=== PATIENT | female | born 1975 ===

== ENCOUNTER 2020-03-14 18:56 | Inpatient (IN) ==
[2020-03-14 19:38] LABS: Basophils % 0.1 % (0.0-0.8); Hemoglobin 10.1 GM/DL (12.0-16.0); Immature Granulocytes % 0.6 %; Immature Granulocytes Absolute 0.13 #; Lymphocytes # 1.1 10*3/uL (1.4-4.0); Lymphocytes % 5.1 % (21.3-54.2); Mean Corpuscular HGB Conc 30.6 GM/DL (32-36); Mean Corpuscular Volume 62.7 FL (87-102); Mean Platelet Volume 9.1 FL (9.6-12.0); Monocytes % 3.8 % (1.7-12.7); Neutrophils % 90.4 % (38.7-73.9); Platelet Count 454 T/CUMM (130-400); Red Blood Count 5.26 MC/CUMM (3.8-5.5); White Blood Count 21.2 T/CUMM (4-12)
[2020-03-14] MEDS ORDERED: DEXAMETHASONE 4 MG/1 ML VIAL IV STA (19:42)
[2020-03-14] MEDS ORDERED: ONDANSETRON 4 MG/2 ML VIAL IV STA (19:42)
[2020-03-14] MEDS ORDERED: PIPERACILLIN/TAZOBACTAM 3,375 MG in SODIUM CHLORIDE 0.9% 100 ML IV STA (19:42)
[2020-03-14 19:43] LABS: Albumin 2.9 G/DL (3.4-5.0); Bilirubin,Total 0.5 MG/DL (0.2-1.0); Calcium 8.5 MG/DL (8.5-10.1); Osmolality,Calculated 267.4 MOS/KG (273-304); Total Protein 7.5 G/DL (6.4-8.3)
[2020-03-14 19:47] LABS: Partial Thromboplastin Time 33.6 SECS (23.9-33.8)
[2020-03-14] MEDS ORDERED: ACETAMINOPHEN 500 MG TABLET PO STA (20:09)
[2020-03-14 20:11] LABS: Ferritin 55.9 ng/ml (8-252)
[2020-03-14 20:21] LABS: PT Patient Result 10.9 SECS (9.8-11.9)
[2020-03-14 20:35] LABS: Lymphocytes 7 % (20-55); Microcytosis 3+; Segmented Neutrophils 91 % (50-85); Total Cells Counted 100
[2020-03-14 20:36] LABS: Hypochromasia 2+; Platelet Estimate Increased
[2020-03-14] MEDS ORDERED: GLUCAGON 1 MG VIAL IM PRN (21:01)
[2020-03-14] MEDS ORDERED: ONDANSETRON 4 MG/2 ML VIAL IV PRN (21:01)
[2020-03-14] MEDS ORDERED: diphenhydrAMINE CAP 25 MG CAPSULE PO PRN (21:01)
[2020-03-14] MEDS ORDERED: MORPHINE 4 MG/1 ML VIAL IV PRN (21:01)
[2020-03-14] MEDS ORDERED: DEXTROSE 50% 25 GM/50 ML VIAL IV PRN (21:01)
[2020-03-14] MEDS ORDERED: hydrALAZINE 20 MG/1 ML VIAL IV PRN (21:01)
[2020-03-14] MEDS ORDERED: ALUMINUM/MAGNES/SIMETH MAX STR 30 ML UDCUP PO PRN (21:01)
[2020-03-14] MEDS ORDERED: ACETAMINOPHEN 325 MG TABLET PO PRN (21:01)
[2020-03-14] MEDS ORDERED: NICOTINE 21 MG/24 HR PATCH TRANSDERM PRN (21:01)
[2020-03-14] MEDS: SODIUM CHLORIDE 0.9% 1,000 ML IV SCH (22:33)
[2020-03-15] MEDS: PIPERACILLIN/TAZOBACTAM 3,375 MG in SODIUM CHLORIDE 0.9% 100 ML IV SCH ×3 (04:21→21:43)
[2020-03-15] MEDS ORDERED: ALBUTEROL INHALER 18 GM INH PRN (06:36)
[2020-03-15] MEDS ORDERED: AZITHROMYCIN INJ 500 MG in SODIUM CHLORIDE 0.9% 250 ML IV SCH (07:00)
[2020-03-15] MEDS ORDERED: DEXAMETHASONE 4 MG/1 ML VIAL IV SCH (08:00)
[2020-03-15] MEDS: ALBUTEROL INHALER 18 GM INH SCH ×4 (08:31→20:20)
[2020-03-15] MEDS: SODIUM CHLORIDE 0.9% 1,000 ML IV SCH ×3 (08:31→18:50)
[2020-03-15] MEDS: AZITHROMYCIN 250 MG TABLET PO SCH (08:32)
[2020-03-15] MEDS ORDERED: SODIUM CHLORIDE 0.9% 1,000 ML IV PRN (11:08)
[2020-03-15 12:22] LABS: ABG Base Excess -4.1 MMOL/L (-2.5-2.5); ABG HCO3 20.9 MMOL/L (20-26); ABG Oxygen Saturation 89.1 % (95-100); ABG PCO2 31.9 MM HG (35-48); ABG PH 7.403 (7.35-7.45); ABG PO2 67.5 MM HG (80-95); ABG TCO2 18.3 MMOL/L (23-27); Allen Test Positive
[2020-03-15] MEDS: INSULIN LISPRO 100 UNIT/ML SUBCUT SCH ×3 (12:29→20:21)
[2020-03-15] MEDS ORDERED: ENOXAPARIN 40 MG/0.4 ML SYRINGE SUBCUT SCH (12:30)
[2020-03-15] MEDS ORDERED: FUROSEMIDE 40 MG/4 ML VIAL IV ONE (12:58)
[2020-03-15 13:04] LABS: Bilirubin,Urine Negative (Negative); Blood, Urine Negative (Negative); Glucose,Urine (UA) >=500 mg/dL (Negative); Ketones,Urine 80 mg/dL (Negative); Mucus,Urine Occasional /LPF (Occasional); Nitrite,Urine Negative (Negative); Protein,Urine 30 MG/DL; RBC,Urine 1 /HPF (0-4); Squamous Epithelial Cell,Urine Occasional /HPF (0-10); Urine Appearance Slightly Hazy (Clear); Urine Color Yellow (Yellow); Urine Specific Gravity 1.023 (1.001-1.035); Urine Urobilinogen < 2.0 EU/DL (0.2-1.0); WBC,Urine 4 /HPF (0-6)
[2020-03-15] MEDS: ASCORBIC ACID 500 MG TABLET PO SCH ×2 (13:38→20:17)
[2020-03-15] MEDS: CETIRIZINE 10 MG TABLET PO SCH (13:38)
[2020-03-15] MEDS: ZINC SULFATE 220 MG CAPSULE PO SCH (13:38)
[2020-03-15] MEDS ORDERED: REMDESIVIR 200 MG in SODIUM CHLORIDE 0.9% 210 ML IV ONE (15:00)
[2020-03-15] MEDS ORDERED: POTASSIUM CHLORIDE 20 MEQ TABLET PO ONE (15:08)
[2020-03-15] MEDS: glipiZIDE 5 MG TABLET PO SCH ×2 (15:58→20:16)
[2020-03-15] MEDS: ALPRAZolam 0.25 MG TABLET PO PRN (16:44)
[2020-03-15] MEDS: ENOXAPARIN 40 MG/0.4 ML SYRINGE SUBCUT SCH (20:22)
[2020-03-16] MEDS: ALBUTEROL INHALER 18 GM INH SCH ×7 (00:04→23:15)
[2020-03-16] MEDS: SODIUM CHLORIDE 0.9% 1,000 ML IV SCH (03:51)
[2020-03-16] MEDS: PIPERACILLIN/TAZOBACTAM 3,375 MG in SODIUM CHLORIDE 0.9% 100 ML IV SCH ×3 (03:58→20:18)
[2020-03-16 04:50] LABS: Basophils % 0.1 % (0.0-0.8); Hematocrit 29.5 VOL% (35.7-47.0); Hemoglobin 8.9 GM/DL (12.0-16.0); Immature Granulocytes % 0.6 %; Immature Granulocytes Absolute 0.14 #; Lymphocytes # 1.9 10*3/uL (1.4-4.0); Lymphocytes % 8.5 % (21.3-54.2); Mean Corpuscular HGB Conc 30.2 GM/DL (32-36); Mean Corpuscular Volume 62.5 FL (87-102); Mean Platelet Volume 8.9 FL (9.6-12.0); Monocytes % 4.9 % (1.7-12.7); NRBC # 0.02 10*3/uL; Neutrophils % 85.9 % (38.7-73.9); Platelet Count 537 T/CUMM (130-400); Red Blood Count 4.72 MC/CUMM (3.8-5.5); Red Cell Distribution Width 19.6 % (9.3-17.3); White Blood Count 22.8 T/CUMM (4-12)
[2020-03-16 05:09] LABS: Lymphocytes 4 % (20-55); Nucleated Red Blood Cells 2 (0-5); Platelet Estimate Increased; Segmented Neutrophils 93 % (50-85); Total Cells Counted 100
[2020-03-16 05:10] LABS: Hypochromasia Slight; Microcytosis 2+
[2020-03-16 05:24] LABS: Alanine Aminotransferase 22 U/L (13-56); Albumin 2.3 G/DL (3.4-5.0); Alkaline Phosphatase 80 U/L (45-117); Aspartate Amino Transferase 22 U/L (0-37); Bilirubin,Total < 0.39 MG/DL (0.2-1.0); Blood Urea Nitrogen 14 MG/DL (7-18); Calcium 8.2 MG/DL (8.5-10.1); Estimated Glom Filtration Rate 125 ML/MIN; Glucose 141 MG/DL (74-106); Osmolality,Calculated 277.7 MOS/KG (273-304); Total Protein 7.3 G/DL (6.4-8.3)
[2020-03-16 05:25] LABS: Risk Ratio 3.48; VLDL CHOLESTEROL 21.4 MG/DL
[2020-03-16 07:42] LABS: ABG Base Excess -1.9 MMOL/L (-2.5-2.5); ABG HCO3 21.4 MMOL/L (20-26); ABG Oxygen Saturation 87.4 % (95-100); ABG PCO2 30.6 MM HG (35-48); ABG PH 7.462 (7.35-7.45); ABG PO2 55.5 MM HG (80-95); ABG TCO2 22.3 MMOL/L (23-27); Allen Test Positive; Pt O2 Delivery Device Other
[2020-03-16] MEDS: INSULIN LISPRO 100 UNIT/ML SUBCUT SCH ×4 (07:44→21:23)
[2020-03-16] MEDS ORDERED: POTASSIUM CHLORIDE 20 MEQ TABLET PO ONE (08:15)
[2020-03-16] MEDS: ENOXAPARIN 40 MG/0.4 ML SYRINGE SUBCUT SCH ×2 (08:23→21:23)
[2020-03-16] MEDS: AZITHROMYCIN 250 MG TABLET PO SCH (08:23)
[2020-03-16] MEDS: glipiZIDE 5 MG TABLET PO SCH ×2 (08:24→21:23)
[2020-03-16] MEDS: ASCORBIC ACID 500 MG TABLET PO SCH ×2 (08:24→21:23)
[2020-03-16] MEDS: lisinopriL 5 MG TABLET PO SCH (08:24)
[2020-03-16] MEDS: CETIRIZINE 10 MG TABLET PO SCH (08:24)
[2020-03-16] MEDS: ZINC SULFATE 220 MG CAPSULE PO SCH (08:24)
[2020-03-16] MEDS: DEXAMETHASONE 10 MG/1 ML VIAL IV SCH (08:25)
[2020-03-16] MEDS: REMDESIVIR 100 MG in SODIUM CHLORIDE 0.9% 230 ML IV SCH (08:25)
[2020-03-16] MEDS: ALPRAZolam 0.25 MG TABLET PO PRN ×2 (15:37→20:45)
[2020-03-17 03:42] LABS: ABG Base Excess -0.6 MMOL/L (-2.5-2.5); ABG HCO3 23.8 MMOL/L (20-26); ABG Oxygen Saturation 91.5 % (95-100); ABG PCO2 32.5 MM HG (35-48); ABG PH 7.455 (7.35-7.45); ABG PO2 64.7 MM HG (80-95); ABG TCO2 21.1 MMOL/L (23-27); Allen Test Positive; Pt O2 Delivery Device Other
[2020-03-17 04:00] LABS: Basophils % 0.1 % (0.0-0.8); Hematocrit 28.8 VOL% (35.7-47.0); Hemoglobin 8.7 GM/DL (12.0-16.0); Immature Granulocytes % 0.7 %; Immature Granulocytes Absolute 0.12 #; Lymphocytes # 1.8 10*3/uL (1.4-4.0); Lymphocytes % 10.6 % (21.3-54.2); Mean Corpuscular HGB Conc 30.2 GM/DL (32-36); Mean Corpuscular Volume 63.6 FL (87-102); Mean Platelet Volume 9.2 FL (9.6-12.0); Monocytes % 5.4 % (1.7-12.7); NRBC # 0.02 10*3/uL; Neutrophils % 83.2 % (38.7-73.9); Platelet Count 543 T/CUMM (130-400); Red Blood Count 4.53 MC/CUMM (3.8-5.5); Red Cell Distribution Width 19.9 % (9.3-17.3); White Blood Count 16.6 T/CUMM (4-12)
[2020-03-17] MEDS: ALBUTEROL INHALER 18 GM INH SCH ×4 (04:00→17:03)
[2020-03-17 04:24] LABS: Calcium 8.4 MG/DL (8.5-10.1); Ferritin 45.3 ng/ml (8-252); Osmolality,Calculated 276.8 MOS/KG (273-304)
[2020-03-17] MEDS: PIPERACILLIN/TAZOBACTAM 3,375 MG in SODIUM CHLORIDE 0.9% 100 ML IV SCH ×3 (05:00→19:46)
[2020-03-17] MEDS: INSULIN LISPRO 100 UNIT/ML SUBCUT SCH ×4 (07:09→21:01)
[2020-03-17] MEDS: glipiZIDE 5 MG TABLET PO SCH ×2 (08:04→21:02)
[2020-03-17] MEDS: DEXAMETHASONE 10 MG/1 ML VIAL IV SCH (08:04)
[2020-03-17] MEDS: ENOXAPARIN 40 MG/0.4 ML SYRINGE SUBCUT SCH ×2 (08:04→21:02)
[2020-03-17] MEDS: FAMOTIDINE 20 MG TABLET PO SCH (08:05)
[2020-03-17] MEDS: ZINC SULFATE 220 MG CAPSULE PO SCH (08:05)
[2020-03-17] MEDS: CETIRIZINE 10 MG TABLET PO SCH (08:05)
[2020-03-17] MEDS: ASCORBIC ACID 500 MG TABLET PO SCH ×2 (08:05→21:02)
[2020-03-17] MEDS: AZITHROMYCIN 250 MG TABLET PO SCH (08:05)
[2020-03-17] MEDS: POTASSIUM CHLORIDE 20 MEQ TABLET PO PRN (08:05)
[2020-03-17] MEDS: lisinopriL 5 MG TABLET PO SCH (08:06)
[2020-03-17] MEDS: ALPRAZolam 0.25 MG TABLET PO PRN ×2 (08:52→21:03)
[2020-03-17] MEDS: REMDESIVIR 100 MG in SODIUM CHLORIDE 0.9% 230 ML IV SCH (09:49)
[2020-03-17] MEDS: guaiFENesin/DM ER 600-30 MG TABLET PO PRN (12:15)
[2020-03-18] MEDS: PIPERACILLIN/TAZOBACTAM 3,375 MG in SODIUM CHLORIDE 0.9% 100 ML IV SCH ×2 (03:03→12:02)
[2020-03-18 04:09] LABS: Pt O2 Delivery Device Other
[2020-03-18 04:10] LABS: ABG Base Excess -2.1 MMOL/L (-2.5-2.5); ABG HCO3 21.1 MMOL/L (20-26); ABG Oxygen Saturation 86.6 % (95-100); ABG PCO2 30.1 MM HG (35-48); ABG PH 7.463 (7.35-7.45); ABG PO2 54.6 MM HG (80-95)
[2020-03-18 06:33] LABS: Basophils % 0.1 % (0.0-0.8); Eosinophils # 0.1 10*3/uL (0.0-0.87); Eosinophils % 0.5 % (0.00-10.9); Hematocrit 30.9 VOL% (35.7-47.0); Hemoglobin 9.3 GM/DL (12.0-16.0); Immature Granulocytes Absolute 0.37 #; Lymphocytes # 3.1 10*3/uL (1.4-4.0); Lymphocytes % 16.3 % (21.3-54.2); Mean Corpuscular HGB Conc 30.1 GM/DL (32-36); Mean Corpuscular Volume 63.4 FL (87-102); Mean Platelet Volume 9.5 FL (9.6-12.0); Monocytes % 5.4 % (1.7-12.7); NRBC # 0.02 10*3/uL; Neutrophils % 75.7 % (38.7-73.9); Platelet Count 555 T/CUMM (130-400); Red Blood Count 4.87 MC/CUMM (3.8-5.5); Red Cell Distribution Width 20.2 % (9.3-17.3); White Blood Count 18.9 T/CUMM (4-12)
[2020-03-18 06:56] LABS: Calcium 8.2 MG/DL (8.5-10.1); Ferritin 32.4 ng/ml (8-252); Osmolality,Calculated 277.4 MOS/KG (273-304)
[2020-03-18] MEDS: ALBUTEROL INHALER 18 GM INH SCH ×6 (07:09→23:15)
[2020-03-18] MEDS: ENOXAPARIN 40 MG/0.4 ML SYRINGE SUBCUT SCH ×2 (08:03→20:32)
[2020-03-18] MEDS: POTASSIUM CHLORIDE 20 MEQ TABLET PO PRN ×3 (08:03→14:41)
[2020-03-18] MEDS: DEXAMETHASONE 10 MG/1 ML VIAL IV SCH (08:03)
[2020-03-18] MEDS: glipiZIDE 5 MG TABLET PO SCH (08:03)
[2020-03-18] MEDS: FAMOTIDINE 20 MG TABLET PO SCH (08:03)
[2020-03-18] MEDS: lisinopriL 5 MG TABLET PO SCH (08:04)
[2020-03-18] MEDS: ZINC SULFATE 220 MG CAPSULE PO SCH (08:04)
[2020-03-18] MEDS: CETIRIZINE 10 MG TABLET PO SCH (08:04)
[2020-03-18] MEDS: AZITHROMYCIN 250 MG TABLET PO SCH (08:04)
[2020-03-18] MEDS: ASCORBIC ACID 500 MG TABLET PO SCH ×2 (08:04→20:33)
[2020-03-18] MEDS: guaiFENesin/DM ER 600-30 MG TABLET PO PRN ×2 (09:00→22:00)
[2020-03-18] MEDS: ALPRAZolam 0.25 MG TABLET PO PRN ×2 (09:00→20:33)
[2020-03-18] MEDS: INSULIN LISPRO 100 UNIT/ML SUBCUT SCH ×4 (10:16→20:33)
[2020-03-18] MEDS: REMDESIVIR 100 MG in SODIUM CHLORIDE 0.9% 230 ML IV SCH (10:16)
[2020-03-18] MEDS: LEVOFLOXACIN INJ 750 MG in PREMIX 1 EACH IV SCH (15:07)
[2020-03-18] MEDS: VANCOMYCIN INJ 1,500 MG in SODIUM CHLORIDE 0.9% 500 ML IV SCH (17:17)
[2020-03-18] MEDS ORDERED: guaiFENesin 200 MG/10 ML UDCUP PO PRN (21:36)
[2020-03-19] MEDS: VANCOMYCIN INJ 1,500 MG in SODIUM CHLORIDE 0.9% 500 ML IV SCH (03:45)
[2020-03-19] MEDS: ALBUTEROL INHALER 18 GM INH SCH ×5 (04:00→18:14)
[2020-03-19 04:08] LABS: Basophils % 0.1 % (0.0-0.8); Eosinophils # 0.1 10*3/uL (0.0-0.87); Eosinophils % 0.5 % (0.00-10.9); Hematocrit 30.5 VOL% (35.7-47.0); Hemoglobin 9.1 GM/DL (12.0-16.0); Immature Granulocytes % 1.8 %; Immature Granulocytes Absolute 0.32 #; Lymphocytes # 2.5 10*3/uL (1.4-4.0); Lymphocytes % 14.5 % (21.3-54.2); Mean Corpuscular HGB Conc 29.8 GM/DL (32-36); Mean Corpuscular Volume 63.5 FL (87-102); Mean Platelet Volume 9.1 FL (9.6-12.0); Monocytes % 5.4 % (1.7-12.7); NRBC # 0.06 10*3/uL; Neutrophils % 77.7 % (38.7-73.9); Platelet Count 592 T/CUMM (130-400); Red Cell Distribution Width 19.9 % (9.3-17.3); White Blood Count 17.5 T/CUMM (4-12)
[2020-03-19 04:29] LABS: Calcium 8.1 MG/DL (8.5-10.1); Osmolality,Calculated 277.5 MOS/KG (273-304)
[2020-03-19 04:54] LABS: ABG Base Excess -1.3 MMOL/L (-2.5-2.5); ABG HCO3 21.5 MMOL/L (20-26); ABG Oxygen Saturation 93.2 % (95-100); ABG PCO2 29.1 MM HG (35-48); ABG PH 7.487 (7.35-7.45); ABG PO2 70.2 MM HG (80-95); ABG TCO2 22.4 MMOL/L (23-27); Pt O2 Delivery Device Other
[2020-03-19 05:01] LABS: Ferritin 24.7 ng/ml (8-252)
[2020-03-19] MEDS: INSULIN LISPRO 100 UNIT/ML SUBCUT SCH ×4 (07:58→20:36)
[2020-03-19] MEDS: lisinopriL 5 MG TABLET PO SCH (08:27)
[2020-03-19] MEDS: DEXAMETHASONE 10 MG/1 ML VIAL IV SCH (08:27)
[2020-03-19] MEDS: FAMOTIDINE 20 MG TABLET PO SCH (08:27)
[2020-03-19] MEDS: ENOXAPARIN 40 MG/0.4 ML SYRINGE SUBCUT SCH ×2 (08:27→20:37)
[2020-03-19] MEDS: ZINC SULFATE 220 MG CAPSULE PO SCH (08:27)
[2020-03-19] MEDS: CETIRIZINE 10 MG TABLET PO SCH (08:27)
[2020-03-19] MEDS: ASCORBIC ACID 500 MG TABLET PO SCH ×2 (08:27→20:37)
[2020-03-19] MEDS: REMDESIVIR 100 MG in SODIUM CHLORIDE 0.9% 230 ML IV SCH (08:28)
[2020-03-19] MEDS: LEVOFLOXACIN INJ 750 MG in PREMIX 1 EACH IV SCH (15:37)
[2020-03-20] MEDS: ALBUTEROL INHALER 18 GM INH SCH ×7 (00:03→23:49)
[2020-03-20 04:28] LABS: ABG Base Excess 0.5 MMOL/L (-2.5-2.5); ABG HCO3 23.5 MMOL/L (20-26); ABG Oxygen Saturation 93.4 % (95-100); ABG PCO2 31.6 MM HG (35-48); ABG PH 7.489 (7.35-7.45); ABG PO2 71.8 MM HG (80-95); ABG TCO2 24.5 MMOL/L (23-27); Allen Test Positive; Pt O2 Delivery Device Other
[2020-03-20 04:45] LABS: Basophils % 0.1 % (0.0-0.8); Eosinophils # 0.1 10*3/uL (0.0-0.87); Eosinophils % 0.5 % (0.00-10.9); Hematocrit 31.3 VOL% (35.7-47.0); Hemoglobin 9.4 GM/DL (12.0-16.0); Immature Granulocytes % 2.5 %; Immature Granulocytes Absolute 0.48 #; Lymphocytes % 10.8 % (21.3-54.2); Mean Corpuscular Volume 62.5 FL (87-102); Mean Platelet Volume 9.1 FL (9.6-12.0); Monocytes % 5.5 % (1.7-12.7); NRBC # 0.03 10*3/uL; Neutrophils % 80.6 % (38.7-73.9); Platelet Count 485 T/CUMM (130-400); Red Blood Count 5.01 MC/CUMM (3.8-5.5); Red Cell Distribution Width 20.4 % (9.3-17.3); White Blood Count 18.9 T/CUMM (4-12)
[2020-03-20 05:05] LABS: Ferritin 20.5 ng/ml (8-252)
[2020-03-20 05:19] LABS: Calcium 8.2 MG/DL (8.5-10.1); Osmolality,Calculated 281.5 MOS/KG (273-304)
[2020-03-20] MEDS: INSULIN LISPRO 100 UNIT/ML SUBCUT SCH ×4 (07:58→21:32)
[2020-03-20] MEDS: DEXAMETHASONE 10 MG/1 ML VIAL IV SCH (09:19)
[2020-03-20] MEDS: ENOXAPARIN 40 MG/0.4 ML SYRINGE SUBCUT SCH ×2 (09:20→21:32)
[2020-03-20] MEDS: POTASSIUM CHLORIDE 20 MEQ TABLET PO PRN ×2 (09:21→12:24)
[2020-03-20] MEDS: FAMOTIDINE 20 MG TABLET PO SCH (09:21)
[2020-03-20] MEDS: ZINC SULFATE 220 MG CAPSULE PO SCH (09:21)
[2020-03-20] MEDS: lisinopriL 5 MG TABLET PO SCH (09:21)
[2020-03-20] MEDS: CETIRIZINE 10 MG TABLET PO SCH (09:21)
[2020-03-20] MEDS: ASCORBIC ACID 500 MG TABLET PO SCH ×2 (09:21→21:32)
[2020-03-20] MEDS: LEVOFLOXACIN INJ 750 MG in PREMIX 1 EACH IV SCH (16:36)
[2020-03-20] MEDS: ALPRAZolam 0.25 MG TABLET PO PRN (21:33)
[2020-03-21] MEDS: ALBUTEROL INHALER 18 GM INH SCH ×6 (03:23→23:20)
[2020-03-21 04:08] LABS: Basophils % 0.1 % (0.0-0.8); Eosinophils # 0.1 10*3/uL (0.0-0.87); Eosinophils % 0.3 % (0.00-10.9); Hematocrit 31.4 VOL% (35.7-47.0); Hemoglobin 9.7 GM/DL (12.0-16.0); Immature Granulocytes % 1.7 %; Immature Granulocytes Absolute 0.36 #; Lymphocytes # 1.9 10*3/uL (1.4-4.0); Lymphocytes % 8.8 % (21.3-54.2); Mean Corpuscular HGB Conc 30.9 GM/DL (32-36); Mean Corpuscular Volume 62.8 FL (87-102); Mean Platelet Volume 8.8 FL (9.6-12.0); Monocytes % 5.4 % (1.7-12.7); Neutrophils % 83.7 % (38.7-73.9); Red Cell Distribution Width 20.5 % (9.3-17.3); White Blood Count 21.5 T/CUMM (4-12)
[2020-03-21 04:10] LABS: Platelet Count 729 T/CUMM (130-400)
[2020-03-21 04:16] LABS: Calcium 8.5 MG/DL (8.5-10.1)
[2020-03-21 04:24] LABS: Hypochromasia 2+; Microcytosis 2+
[2020-03-21 04:25] LABS: Platelet Estimate Increased
[2020-03-21 04:56] LABS: ABG Base Excess 1.1 MMOL/L (-2.5-2.5); ABG HCO3 25.4 MMOL/L (20-26); ABG Oxygen Saturation 98.2 % (95-100); ABG PCO2 30.7 MM HG (35-48); ABG PH 7.496 (7.35-7.45); ABG TCO2 21.6 MMOL/L (23-27); Allen Test Positive; Pt O2 Delivery Device Other
[2020-03-21] MEDS: INSULIN LISPRO 100 UNIT/ML SUBCUT SCH ×4 (07:35→21:57)
[2020-03-21] MEDS: DEXAMETHASONE 10 MG/1 ML VIAL IV SCH (08:19)
[2020-03-21] MEDS: ALPRAZolam 0.25 MG TABLET PO PRN (08:19)
[2020-03-21] MEDS: ENOXAPARIN 40 MG/0.4 ML SYRINGE SUBCUT SCH ×2 (08:20→21:58)
[2020-03-21] MEDS: CETIRIZINE 10 MG TABLET PO SCH (08:20)
[2020-03-21] MEDS: ZINC SULFATE 220 MG CAPSULE PO SCH (08:20)
[2020-03-21] MEDS: ASCORBIC ACID 500 MG TABLET PO SCH ×2 (08:20→21:57)
[2020-03-21] MEDS: FAMOTIDINE 20 MG TABLET PO SCH (08:20)
[2020-03-21] MEDS: lisinopriL 5 MG TABLET PO SCH (08:20)
[2020-03-21] MEDS: LEVOFLOXACIN INJ 750 MG in PREMIX 1 EACH IV SCH (15:18)
[2020-03-22] MEDS: ALBUTEROL INHALER 18 GM INH SCH ×6 (03:12→23:51)
[2020-03-22 05:22] LABS: Basophils % 0.1 % (0.0-0.8); Eosinophils # 0.1 10*3/uL (0.0-0.87); Eosinophils % 0.7 % (0.00-10.9); Hematocrit 32.6 VOL% (35.7-47.0); Hemoglobin 9.8 GM/DL (12.0-16.0); Immature Granulocytes % 1.2 %; Immature Granulocytes Absolute 0.21 #; Lymphocytes # 2.5 10*3/uL (1.4-4.0); Lymphocytes % 14.1 % (21.3-54.2); Mean Corpuscular HGB Conc 30.1 GM/DL (32-36); Mean Platelet Volume 8.9 FL (9.6-12.0); Monocytes % 6.1 % (1.7-12.7); Neutrophils % 77.8 % (38.7-73.9); Platelet Count 674 T/CUMM (130-400); Red Blood Count 5.09 MC/CUMM (3.8-5.5); Red Cell Distribution Width 20.4 % (9.3-17.3); White Blood Count 17.6 T/CUMM (4-12)
[2020-03-22 05:56] LABS: Alanine Aminotransferase 22 U/L (13-56); Albumin 2.3 G/DL (3.4-5.0); Alkaline Phosphatase 67 U/L (45-117); Aspartate Amino Transferase 8 U/L (0-37); Bilirubin,Total < 0.39 MG/DL (0.2-1.0); Blood Urea Nitrogen 15 MG/DL (7-18); Calcium 8.3 MG/DL (8.5-10.1); Estimated Glom Filtration Rate 131 ML/MIN; Glucose 104 MG/DL (74-106); Osmolality,Calculated 277.5 MOS/KG (273-304); Total Protein 6.4 G/DL (6.4-8.3)
[2020-03-22] MEDS: ASCORBIC ACID 500 MG TABLET PO SCH ×2 (08:33→23:00)
[2020-03-22] MEDS: DEXAMETHASONE 10 MG/1 ML VIAL IV SCH (08:33)
[2020-03-22] MEDS: lisinopriL 5 MG TABLET PO SCH (08:34)
[2020-03-22] MEDS: CETIRIZINE 10 MG TABLET PO SCH (08:34)
[2020-03-22] MEDS: INSULIN LISPRO 100 UNIT/ML SUBCUT SCH ×4 (08:34→21:55)
[2020-03-22] MEDS: FAMOTIDINE 20 MG TABLET PO SCH (08:34)
[2020-03-22] MEDS: ENOXAPARIN 40 MG/0.4 ML SYRINGE SUBCUT SCH ×2 (08:34→21:56)
[2020-03-22] MEDS: ZINC SULFATE 220 MG CAPSULE PO SCH (08:34)
[2020-03-22] MEDS: LEVOFLOXACIN INJ 750 MG in PREMIX 1 EACH IV SCH (15:48)
[2020-03-22] MEDS: guaiFENesin/DM ER 600-30 MG TABLET PO PRN (21:56)
[2020-03-23] MEDS: ALBUTEROL INHALER 18 GM INH SCH ×6 (03:35→22:52)
[2020-03-23 08:32] LABS: Basophils % 0.2 % (0.0-0.8); Eosinophils # 0.1 10*3/uL (0.0-0.87); Eosinophils % 0.7 % (0.00-10.9); Hematocrit 35.5 VOL% (35.7-47.0); Hemoglobin 10.7 GM/DL (12.0-16.0); Immature Granulocytes Absolute 0.18 #; Lymphocytes # 3.3 10*3/uL (1.4-4.0); Lymphocytes % 18.1 % (21.3-54.2); Mean Corpuscular HGB Conc 30.1 GM/DL (32-36); Mean Corpuscular Volume 64.5 FL (87-102); Monocytes % 6.2 % (1.7-12.7); Neutrophils % 73.8 % (38.7-73.9); Platelet Count 693 T/CUMM (130-400); Red Cell Distribution Width 21.2 % (9.3-17.3); White Blood Count 17.9 T/CUMM (4-12)
[2020-03-23 08:50] LABS: Calcium 8.8 MG/DL (8.5-10.1); Osmolality,Calculated 279.5 MOS/KG (273-304)
[2020-03-23] MEDS: INSULIN LISPRO 100 UNIT/ML SUBCUT SCH ×4 (08:52→22:19)
[2020-03-23] MEDS: ASCORBIC ACID 500 MG TABLET PO SCH ×2 (10:27→22:19)
[2020-03-23] MEDS: lisinopriL 5 MG TABLET PO SCH (10:27)
[2020-03-23] MEDS: CETIRIZINE 10 MG TABLET PO SCH (10:27)
[2020-03-23] MEDS: ENOXAPARIN 40 MG/0.4 ML SYRINGE SUBCUT SCH ×2 (10:27→22:19)
[2020-03-23] MEDS: ZINC SULFATE 220 MG CAPSULE PO SCH (10:27)
[2020-03-23] MEDS: DEXAMETHASONE 10 MG/1 ML VIAL IV SCH (10:27)
[2020-03-23] MEDS: FAMOTIDINE 20 MG TABLET PO SCH (10:27)
[2020-03-23] MEDS: LEVOFLOXACIN INJ 750 MG in PREMIX 1 EACH IV SCH (16:30)
[2020-03-23] MEDS: POTASSIUM CHLORIDE 20 MEQ TABLET PO PRN (22:19)
[2020-03-24] MEDS: ALBUTEROL INHALER 18 GM INH SCH ×6 (03:06→22:26)
[2020-03-24 06:49] LABS: Basophils % 0.1 % (0.0-0.8); Eosinophils # 0.1 10*3/uL (0.0-0.87); Eosinophils % 0.3 % (0.00-10.9); Hematocrit 33.6 VOL% (35.7-47.0); Hemoglobin 10.1 GM/DL (12.0-16.0); Immature Granulocytes % 1.5 %; Immature Granulocytes Absolute 0.26 #; Lymphocytes # 3.1 10*3/uL (1.4-4.0); Lymphocytes % 17.5 % (21.3-54.2); Mean Corpuscular HGB Conc 30.1 GM/DL (32-36); Mean Platelet Volume 9.5 FL (9.6-12.0); Monocytes % 7.5 % (1.7-12.7); Neutrophils % 73.1 % (38.7-73.9); Platelet Count 614 T/CUMM (130-400); Red Blood Count 5.17 MC/CUMM (3.8-5.5); Red Cell Distribution Width 21.7 % (9.3-17.3); White Blood Count 17.8 T/CUMM (4-12)
[2020-03-24 07:42] LABS: Calcium 8.6 MG/DL (8.5-10.1); Osmolality,Calculated 276.7 MOS/KG (273-304)
[2020-03-24] MEDS: INSULIN LISPRO 100 UNIT/ML SUBCUT SCH ×4 (08:33→21:17)
[2020-03-24] MEDS: FAMOTIDINE 20 MG TABLET PO SCH (10:04)
[2020-03-24] MEDS: ZINC SULFATE 220 MG CAPSULE PO SCH (10:04)
[2020-03-24] MEDS: CETIRIZINE 10 MG TABLET PO SCH (10:04)
[2020-03-24] MEDS: ASCORBIC ACID 500 MG TABLET PO SCH ×2 (10:04→21:17)
[2020-03-24] MEDS: ENOXAPARIN 40 MG/0.4 ML SYRINGE SUBCUT SCH ×2 (10:05→21:16)
[2020-03-24] MEDS: DEXAMETHASONE 10 MG/1 ML VIAL IV SCH (10:05)
[2020-03-24] MEDS: lisinopriL 5 MG TABLET PO SCH (15:07)
[2020-03-24] MEDS: LEVOFLOXACIN INJ 750 MG in PREMIX 1 EACH IV SCH (15:40)
[2020-03-25] MEDS: ALBUTEROL INHALER 18 GM INH SCH ×6 (04:42→22:15)
[2020-03-25] MEDS: INSULIN LISPRO 100 UNIT/ML SUBCUT SCH ×4 (08:20→20:24)
[2020-03-25] MEDS: DEXAMETHASONE 10 MG/1 ML VIAL IV SCH (09:30)
[2020-03-25] MEDS: CETIRIZINE 10 MG TABLET PO SCH (09:30)
[2020-03-25] MEDS: ASCORBIC ACID 500 MG TABLET PO SCH ×2 (09:30→20:24)
[2020-03-25] MEDS: ZINC SULFATE 220 MG CAPSULE PO SCH (09:30)
[2020-03-25] MEDS: lisinopriL 5 MG TABLET PO SCH (09:30)
[2020-03-25] MEDS: FAMOTIDINE 20 MG TABLET PO SCH (09:30)
[2020-03-25] MEDS: ENOXAPARIN 40 MG/0.4 ML SYRINGE SUBCUT SCH ×2 (09:30→20:24)
[2020-03-25] MEDS: LEVOFLOXACIN INJ 750 MG in PREMIX 1 EACH IV SCH (15:16)
[2020-03-26] MEDS: ALBUTEROL INHALER 18 GM INH SCH ×3 (02:20→11:19)
[2020-03-26 06:05] LABS: Basophils % 0.2 % (0.0-0.8); Eosinophils # 0.1 10*3/uL (0.0-0.87); Eosinophils % 0.3 % (0.00-10.9); Hematocrit 34.8 VOL% (35.7-47.0); Hemoglobin 10.4 GM/DL (12.0-16.0); Immature Granulocytes % 0.8 %; Immature Granulocytes Absolute 0.11 #; Lymphocytes # 2.8 10*3/uL (1.4-4.0); Lymphocytes % 18.8 % (21.3-54.2); Mean Corpuscular HGB Conc 29.9 GM/DL (32-36); Mean Corpuscular Volume 65.3 FL (87-102); Monocytes % 6.6 % (1.7-12.7); Neutrophils % 73.3 % (38.7-73.9); Platelet Count 660 T/CUMM (130-400); Red Blood Count 5.33 MC/CUMM (3.8-5.5); Red Cell Distribution Width 21.6 % (9.3-17.3); White Blood Count 14.6 T/CUMM (4-12)
[2020-03-26 06:31] LABS: Calcium 8.6 MG/DL (8.5-10.1); Osmolality,Calculated 277.5 MOS/KG (273-304)
[2020-03-26] MEDS: INSULIN LISPRO 100 UNIT/ML SUBCUT SCH ×2 (08:05→11:19)
[2020-03-26] MEDS: ASCORBIC ACID 500 MG TABLET PO SCH (08:23)
[2020-03-26] MEDS: FAMOTIDINE 20 MG TABLET PO SCH (08:23)
[2020-03-26] MEDS: ZINC SULFATE 220 MG CAPSULE PO SCH (08:23)
[2020-03-26] MEDS: ENOXAPARIN 40 MG/0.4 ML SYRINGE SUBCUT SCH (08:23)
[2020-03-26] MEDS: DEXAMETHASONE 10 MG/1 ML VIAL IV SCH (08:23)
[2020-03-26] MEDS: CETIRIZINE 10 MG TABLET PO SCH (08:24)
[2020-03-26 11:15] VITALS: BP 109/60
== END 2020-03-26 14:59 | disposition home or self-care (01) | DRG 177 ==
LOC: N.EDINP 18:56 → N.ED 18:56 → OBSVTOIN 21:01 → SUATTDRO 21:01 → N.EDINP 22:28 → N.2E 22:44 → N.CC 03-15 12:50 → N.2E 03-21 14:46
PROVIDERS: ADMIT Internal Medicine; ATTEND Internal Medicine